=== PATIENT | male | born 1995 | race Caucasian/White ===

== ENCOUNTER 2024-12-21 16:13 | Emergency (ER) | payer BC, SELFPAY ==
[2024-12-21 16:20] VITALS: BP 131/61; PULSE 58; RESP 18; TEMP 36.9; O2SAT 100; BMI 25.1
[2024-12-21 17:22] VITALS: BP 126/66; PULSE 58; RESP 16; TEMP 36.4; O2SAT 100
--- NOTE | 2024-12-21 18:19 | PC.NURSE ---
Attempted twice to bed the patient. The patient cannot be located within the lobby, the restroom, or outside. Assumed the patient left without being seen. Charge nurse aware.
[2024-12-21 18:21] VITALS: BP 126/66; PULSE 58; RESP 16; TEMP 36.4; O2SAT 100
--- NOTE | 2024-12-21 23:19 | HMH.EDGENADL ---
Discharge Plan Disposition Patient Disposition: Left Without Being Seen Clinical Impressions Clinical Impression: Animal bite Print Language Print Language: Telugu Discharge ED Provider: Naif Rodriguez General Adult HPI General Chief complaint: Wound/Laceration Stated complaint: AO 3-9 pig bite on right wrist Time Seen by Provider: 12/21/24 18:13 Mode of Arrival: Ambulatory Source of Information: Patient Description of Symptoms (Recalled from ER Triage Doc. by RN): Patient presents ambulatory to triage. States his sister has a pet pig. States she was attempting to move the pig and he was in the way. States the pig bit him on the right wrist. Bandage on wrist clean, dry, and intact. History of Present Illness HPI narrative: Patient left without being seen. I was therefore unable to assess patient and form a clinical impression. Please note that first provider time was documented solely for the purposes of chart completion. Electronic medical record will not allow me to file a note for the purposes of documenting this encounter in the emergency department without first provider time but again, I did not evaluate the patient. [facility] Disclaimer: The information contained in this section may have been updated after the patient was seen, as this information can be updated by other users. Social History Smoking Status: Unknown if ever smoked alcohol intake: former current occupational status: other Travel in the last 8 weeks: None ROS Obtained: Yes other (Unobtainable) Physical Exam General General appearance: other (Unobtainable) Head Head exam: other (Unobtainable) ENT ENT exam: Present other (Unobtainable) Neck Neck exam: Present other (Unobtainable) Chest Chest inspection: Present other (Unobtainable) Respiratory Respiratory exam: Present other (Unobtainable) Cardiovascular Cardiovascular exam: Present other (Unobtainable) Abdominal Exam Abdominal exam: Present other (Unobtainable) Extremities Exam Extremities exam: Present other (Unobtainable) Back Exam Back exam: Present other (Unobtainable) Neurological Exam Neurological exam: Present other (Unobtainable) Psychiatric Psychiatric exam: Present other (Unobtainable) Medical Decision Making Medical Records Screening: Per USPSTF and CDC recommendations, given the prevalence of disease in our region, it is our hospital?s policy to screen for HIV and viral Hepatitis for all patients aged 18 and over and those with ongoing risk factors. Mendez Inquiry Pt receiving controlled substance: No Vital Signs: 12/21/24 16:20 12/21/24 17:22 12/21/24 18:21 Temperature 98.4 F 97.5 F L 97.5 F L Temperature Source Oral Pulse Rate 58 L 58 L Pulse Rate [Radial] 58 L Respiratory Rate 18 16 16 Blood Pressure 126/66 126/66 Blood Pressure [L Arm] 131/61 Blood Pressure Mean [L Arm] 84 Blood Pressure Source [L Arm] Automatic Cuff Blood Pressure Position Sitting 02 Sat by Pulse Oximetry 100 100 Oxygen Delivery Method Room Air Room Air Medical Decision Narrative: Patient left without being seen. I was therefore unable to assess patient and form a clinical impression.Please note that first provider time was documented solely for the purposes of chart completion.Electronic medical record will not allow me to file a note for the purposes of documenting this encounter in the emergency department without first provider time but again I did not see patient. Critical Care Critical Care Time Critical Care Time: No
--- NOTE | 2024-12-21 23:20 | HMH.EDGENADL ---
Discharge Plan Disposition Patient Disposition: Left Without Being Seen Clinical Impressions Clinical Impression: Animal bite Print Language Print Language: Latvian Discharge ED Provider: Naif Rodriguez General Adult HPI General Chief complaint: Wound/Laceration Stated complaint: AO 3-9 pig bite on right wrist Time Seen by Provider: 12/21/24 18:13 Mode of Arrival: Ambulatory Source of Information: Patient Description of Symptoms (Recalled from ER Triage Doc. by RN): Patient presents ambulatory to triage. States his sister has a pet pig. States she was attempting to move the pig and he was in the way. States the pig bit him on the right wrist. Bandage on wrist clean, dry, and intact. History of Present Illness HPI narrative: Patient left without being seen. I was therefore unable to assess patient and form a clinical impression. Please note that first provider time was documented solely for the purposes of chart completion. Electronic medical record will not allow me to file a note for the purposes of documenting this encounter in the emergency department without first provider time but again, I did not evaluate the patient. [facility] Disclaimer: The information contained in this section may have been updated after the patient was seen, as this information can be updated by other users. Social History (Updated 12/21/24 @ 23:19 by Naif Rodriguez MD) Smoking Status: Unknown if ever smoked alcohol intake: former current occupational status: other Travel in the last 8 weeks: None Have you lived/traveled outside [place] in past 30 days?: No Contact w/someone who lives/traveled outside [place] past 30 days?: No Exposure to someone with infectious disease in past 14 days?: No Do you have a fever (greater than 100.4 F or 38 C)?: No Have you tested positive for COVID-19: No Exposed to someone with COVID-19 in past 14 days?: No Do you have a sore throat?: No Do you have a cough?: No Do you have any weakness?: No Do you have any diarrhea?: No Are you experiencing any unusual bleeding?: No Do you have any muscle aches/pain?: No Do you have any abdominal pain?: No Are you experiencing loss of taste or smell?: No ROS Obtained: Yes other (Unobtainable) Physical Exam General General appearance: other (Unobtainable) Head Head exam: other (Unobtainable) ENT ENT exam: Present other (Unobtainable) Neck Neck exam: Present other (Unobtainable) Chest Chest inspection: Present other (Unobtainable) Respiratory Respiratory exam: Present other (Unobtainable) Cardiovascular Cardiovascular exam: Present other (Unobtainable) Abdominal Exam Abdominal exam: Present other (Unobtainable) Extremities Exam Extremities exam: Present other (Unobtainable) Back Exam Back exam: Present other (Unobtainable) Neurological Exam Neurological exam: Present other (Unobtainable) Psychiatric Psychiatric exam: Present other (Unobtainable) Medical Decision Making Medical Records Screening: Per USPSTF and CDC recommendations, given the prevalence of disease in our region, it is our hospital?s policy to screen for HIV and viral Hepatitis for all patients aged 18 and over and those with ongoing risk factors. Mendez Inquiry Pt receiving controlled substance: No Vital Signs: 12/21/24 16:20 12/21/24 17:22 12/21/24 18:21 Temperature 98.4 F 97.5 F L 97.5 F L Temperature Source Oral Pulse Rate 58 L 58 L Pulse Rate [Radial] 58 L Respiratory Rate 18 16 16 Blood Pressure 126/66 126/66 Blood Pressure [L Arm] 131/61 Blood Pressure Mean [L Arm] 84 Blood Pressure Source [L Arm] Automatic Cuff Blood Pressure Position Sitting 02 Sat by Pulse Oximetry 100 100 Oxygen Delivery Method Room Air Room Air Medical Decision Narrative: Patient left without being seen. I was therefore unable to assess patient and form a clinical impression.Please note that first provider time was documented solely for the purposes of chart completion.Electronic medical record will not allow me to file a note for the purposes of documenting this encounter in the emergency department without first provider time but again I did not see patient. Critical Care Critical Care Time Critical Care Time: No
== END 2024-12-21 18:21 | disposition left against medical advice (07) ==
PROVIDERS: Emergency Provider Emergency Medicine
DX: Z53.21 Procedure and treatment not carried out due to patient leaving prior to being seen by health care provider (principal)